=== PATIENT | male | born 1985 | race Caucasian/White ===

== ENCOUNTER 2018-11-01 11:00 | Emergency (ER) | payer OTHER ==
[~2018-11-01] VITALS: Ht 175.3 cm; Wt 89.8 kg
[2018-11-01 11:00] VITALS: BP 116/84
[2018-11-01] MEDS ORDERED: Morphine Sulfate 2mg/ml Inj(IV/IM USE ONLY) IVP ONE (11:15)
[2018-11-01] MEDS ORDERED: Omnipaque-300 100ml vial INJ PRN (11:15)
--- NOTE | 2018-11-01 11:23 | NUR ---
ED Nurse Note: pt walked in to ER from home due to RLQ pain 11/23. pt aao x4 and ambulatory. skin clean and intact. calm and cooperative but moaning for severe pain. no acute distress noted. vss as documented. pt is in gown and on riveting machine operator.
[2018-11-01 11:46] LABS: APPEARANCE,URINE CLEAR; BILIRUBIN, URINE NEGATIVE (NEGATIVE); COLOR,URINE YELLOW; GLUCOSE, URINE (UA) NEGATIVE (NEGATIVE); HEMATOCRIT 46.4 % (42.0-52.0); HEMOGLOBIN 16.5 G/DL (14.2-18.0); KETONES,URINE 1+ (NEGATIVE); LEUKOCYTE ESTERASE ,URINE NEGATIVE (NEGATIVE); MEAN CORPUSCULAR VOLUME 91 FL (80-99); NITRITE,URINE NEGATIVE (NEGATIVE); PH,URINE 5 (4.5-8.0); PLATELET COUNT 232 K/UL (150-450); PROTEIN,URINE NEGATIVE (NEGATIVE); RED CELL DISTRIBUTION WIDTH 10.2 % (11.6-14.8); UROBILINOGEN,URINE NORMAL MG/DL (0.0-1.0); WHITE BLOOD COUNT 12.7 K/UL (4.8-10.8)
[2018-11-01 12:05] LABS: ANION GAP 9 mmol/L (5-15); BLOOD UREA NITROGEN 16 mg/dL (7-18); CALCIUM 9.9 MG/DL (8.5-10.1); CARBON DIOXIDE 27 MMOL/L (21-32); CHLORIDE 105 MMOL/L (98-107); CREATININE 1.5 MG/DL (0.55-1.30); POTASSIUM 3.9 MMOL/L (3.5-5.1); SODIUM 141 MMOL/L (136-145)
[2018-11-01 12:16] LABS: ALANINE AMINOTRANSFERASE 41 U/L (12-78); ALBUMIN 4.2 G/DL (3.4-5.0); ALBUMIN/GLOBULIN RATIO 1.3 (1.0-2.7); ALKALINE PHOSPHATASE 55 U/L (46-116); ASPARTATE AMINO TRANSFERASE 20 U/L (15-37); BILIRUBIN,TOTAL 1.1 MG/DL (0.2-1.0)
[2018-11-01 12:22] LABS: BILIRUBIN,DIRECT 0.2 MG/DL (0.0-0.3)
[2018-11-01] MEDS ORDERED: BIKTARVY 50-201 EACH PO (12:23)
[2018-11-01] MEDS ORDERED: Ketorolac 30mg Inj IV ONE (13:00)
--- NOTE | 2018-11-01 13:11 | NUR ---
ED Nurse Note: pt went down for CT scan in stable condition.
--- NOTE | 2018-11-01 13:20 | Emergency Room Report ---
History of Present Illness General Chief Complaint: Abdominal Pain Source: Patient Present Illness HPI Patient states that today he suddenly developed right lower quadrant abdominal pain. He states that the pain is severe and he cannot get comfortable. The patient states he was about to go to an appointment with his HIV specialist physician. He states that he has HIV but is undetectable. Has recent illness. Denies fever chills. Denies nausea or vomiting. He denies dysuria or hematuria. He has no other complaints. Allergies: Coded Allergies: No Known Allergies (Unverified , 11/01/18) Patient History Past Medical History: see triage record, GERD, HIV Past Surgical History: other - colorectal surgery Social History: Denies: smoking, alcohol use, drug use Reviewed Nursing Documentation: PMH: Agreed; PSxH: Agreed Nursing Documentation-PMH Past Medical History: No History, Except For Review of Systems All Other Systems: negative except mentioned in HPI Physical Exam Vital Signs Date Time Temp Pulse Resp B/P (MAP) Pulse Ox O2 Delivery O2 Flow Rate FiO2 11/01/18 11:00 89 17 Room Air 11/01/18 11:00 98.5 116/84 98 Sp02 EP Interpretation: reviewed, normal General Appearance: no apparent distress, alert, GCS 15, non-toxic Head: normocephalic, atraumatic Eyes: bilateral eye normal inspection, bilateral eye PERRL ENT: hearing grossly normal, normal pharynx, no angioedema, normal voice Neck: full range of motion, supple/symm/no masses Respiratory: chest non-tender, lungs clear, normal breath sounds, no respiratory distress, no retraction, no accessory muscle use, speaking full sentences Cardiovascular #1: regular rate, rhythm, no edema Gastrointestinal: normal bowel sounds, soft, non-distended, no guarding, no rebound, tenderness - TTP in the RLQ Rectal: deferred Musculoskeletal: back normal, gait/station normal, normal range of motion, non- tender Neurologic: alert, oriented x3, responsive, motor strength/tone normal, sensory intact, speech normal Psychiatric: judgement/insight normal, memory normal, mood/affect normal, no suicidal/homicidal ideation Skin: no rash, normal color Medical Decision Making Diagnostic Impression: Primary Impression: Urolithiasis ER Course This patient is found to have a kidney stone in the right UVJ at the exact location of his pain. He was given morphine and Toradol here in the emergency department. There is no evidence of infected obstructed stone. I will place the patient on Flomax and give him for pain control medications. He was educated to follow-up closely with his primary care physician in addition to a urologist. Overall, the patient is well-appearing and nontoxic. He is given close return precautions and follow-up instructions. Laboratory Tests Test 11/01/18 11:30 White Blood Count 12.7 K/UL (4.8-10.8) H Red Blood Count 5.10 M/UL (4.70-6.10) Hemoglobin 16.5 G/DL (14.2-18.0) Hematocrit 46.4 % (42.0-52.0) Mean Corpuscular Volume 91 FL (80-99) Mean Corpuscular Hemoglobin 32.3 PG (27.0-31.0) H Mean Corpuscular Hemoglobin Concent 35.4 G/DL (32.0-36.0) Red Cell Distribution Width 10.2 % (11.6-14.8) L Platelet Count 232 K/UL (150-450) Mean Platelet Volume 6.1 FL (6.5-10.1) L Neutrophils (%) (Auto) % (45.0-75.0) Lymphocytes (%) (Auto) % (20.0-45.0) Monocytes (%) (Auto) % (1.0-10.0) Eosinophils (%) (Auto) % (0.0-3.0) Basophils (%) (Auto) % (0.0-2.0) Differential Total Cells Counted 100 Neutrophils % (Manual) 82 % (45-75) H Lymphocytes % (Manual) 11 % (20-45) L Monocytes % (Manual) 5 % (1-10) Eosinophils % (Manual) 1 % (0-3) Basophils % (Manual) 0 % (0-2) Band Neutrophils 1 % (0-8) Platelet Estimate Adequate Platelet Morphology Normal Red Blood Cell Morphology Normal Urine Color Yellow Urine Appearance Clear Urine pH 5 (4.5-8.0) Urine Specific [place] 1.030 (1.005-1.035) Urine Protein Negative (NEGATIVE) Urine Glucose (UA) Negative (NEGATIVE) Urine Ketones 1+ (NEGATIVE) H Urine Blood 2+ (NEGATIVE) H Urine Nitrite Negative (NEGATIVE) Urine Bilirubin Negative (NEGATIVE) Urine Urobilinogen Normal MG/DL (0.0-1.0) Urine Leukocyte Esterase Negative (NEGATIVE) Urine RBC 0-2 /HPF (0 - 0) H Urine WBC 0 /HPF (0 - 0) Urine Squamous Epithelial Cells None /LPF (NONE/OCC) Urine Bacteria None /HPF (NONE) Urine Mucus Few /LPF (NONE/OCC) H Sodium Level 141 MMOL/L (136-145) Potassium Level 3.9 MMOL/L (3.5-5.1) Chloride Level 105 MMOL/L (98-107) Carbon Dioxide Level 27 MMOL/L (21-32) Anion Gap 9 mmol/L (5-15) Blood Urea Nitrogen 16 mg/dL (7-18) Creatinine 1.5 MG/DL (0.55-1.30) H Estimate Glomerular Filtration Rate 53.3 mL/min (>60) Glucose Level 155 MG/DL (74-106) H Calcium Level 9.9 MG/DL (8.5-10.1) Total Bilirubin 1.1 MG/DL (0.2-1.0) H Direct Bilirubin 0.2 MG/DL (0.0-0.3) Aspartate Amino Transferase (AST) 20 U/L (15-37) Alanine Aminotransferase (ALT) 41 U/L (12-78) Alkaline Phosphatase 55 U/L (46-116) Total Protein 7.4 G/DL (6.4-8.2) Albumin 4.2 G/DL (3.4-5.0) Globulin 3.2 g/dL Albumin/Globulin Ratio 1.3 (1.0-2.7) CT/MRI/US Diagnostic Results CT/MRI/US Diagnostic Results : Imaging Test Ordered: CT abd/pelvis Impression IMPRESSION: Limited exam without intravenous and oral contrast. Within these limitations: * 3-4 mm stone at the right ureterovesicular junction resulting in mild right- sided hydroureteronephrosis and perinephric/periureteric stranding. Correlation with urinalysis recommended to assess for superimposed infection. * Normal appendix. * Apparent thickening of portions of the left colon likely related to underdistention. A mild colitis not excluded but thought less likely given lack of surrounding pericolonic inflammatory changes. * Mild splenomegaly with the spleen measuring 13 cm in length. Last Vital Signs Date Time Temp Pulse Resp B/P (MAP) Pulse Ox O2 Delivery O2 Flow Rate FiO2 11/01/18 11:57 98.7 11/01/18 11:08 66 20 142/97 (112) 98 Room Air Status: improved Disposition: HOME, SELF-CARE Condition: Improved Referrals: STEFANI MONDRAGON MD (PCP) Libby Justin DO Nov 01, 2018 13:20
--- NOTE | 2018-11-01 13:40 | NUR ---
ED Nurse Note: pt came back from CT scan in stable condition.
--- NOTE | 2018-11-01 13:52 | Diagnostic Imaging Report ---
Indication: Lower quadrant abdominal pain Technique: Noncontrast CT of the abdomen and pelvis utilizing automated exposure control. Axial, sagittal and coronal reformats presented. CT dose: Total DLP 860.05 mGycm; CTDI vol 15.91 mGy Comparison: None Findings: Please note that evaluation of the abdominal and pelvic viscera and vascular structures is limited without the use of intravenous and oral contrast. Within these limitations the following observations are made: Minimal dependent atelectasis noted in the lung bases. Otherwise imaged lower chest unremarkable. Liver, gallbladder, adrenal glands and pancreas unremarkable. Spleen is mildly enlarged measuring 13 cm in AP length. There is a tiny 4 mm stone at the right ureterovesicular junction (series 3 image #122) which results in mild right-sided hydroureteronephrosis and right-sided perinephric/periureteric stranding. No urinary tract stone or hydronephrosis noted on the left apparent bladder wall thickening likely related to underdistention. Seminal vesicles, prostate and imaged portions of the penis unremarkable. There is a small fat-containing inguinal hernia on the right. Tiny fat-containing umbilical hernia is also noted. There is no free intraperitoneal air or fluid. There is no evidence of bowel obstruction or definite inflammatory stranding within the mesentery. Apparent wall thickening involving the left colon likely related to underdistention. No pericolonic inflammatory changes. Appendix is normal in caliber. No periappendiceal inflammatory changes. No pathologically enlarged lymphadenopathy. Abdominal aorta is normal in caliber. No acute osseous abnormality. IMPRESSION: Limited exam without intravenous and oral contrast. Within these limitations: * 3-4 mm stone at the right ureterovesicular junction resulting in mild right-sided hydroureteronephrosis and perinephric/periureteric stranding. Correlation with urinalysis recommended to assess for superimposed infection. * Normal appendix. * Apparent thickening of portions of the left colon likely related to underdistention. A mild colitis not excluded but thought less likely given lack of surrounding pericolonic inflammatory changes. * Mild splenomegaly with the spleen measuring 13 cm in length. The CT scanner at [facility] is accredited by the [employer] and the scans are performed using protocols designed to limit radiation exposure to as low as reasonably achievable to attain images of sufficient resolution adequate for diagnostic evaluation. .
[2018-11-01] MEDS ORDERED: FLOMAX0.4 MG ORAL (14:07)
[2018-11-01] MEDS ORDERED: NORCO 5-325 TA1 EACH ORAL (14:07)
[2018-11-01] MEDS ORDERED: IBUPROFEN800 MG ORAL (14:07)
[2018-11-01 14:22] VITALS: BP 136/84
--- NOTE | 2018-11-01 14:23 | NUR ---
ED Nurse Note: Pt cleared by health care Provider for discharge. DC instructions/prescription was given and explained to pt and verbalized understanding of teachings. All medical deviecs such as ID band removed. Pt is AAO x4, ambulatory and left with all personal belongings. pt provided a note for work.
== END 2018-11-01 14:26 | disposition home or self-care (01) ==
LOC: EMR 11:25
DX: N20.9 Urinary calculus, unspecified (principal); K21.9 Gastro-esophageal reflux disease without esophagitis; B20 Human immunodeficiency virus [HIV] disease; R16.1 Splenomegaly, not elsewhere classified
CPT/HCPCS: 36415; 74176; 80053; 81003; 82248; 85007; 85025; 96361; 96374; 96375; 99284; J1885; J2270; J2405